=== PATIENT | male | born 1985 | race Caucasian/White ===

== ENCOUNTER 2022-08-24 06:54 | Emergency (ER) | payer OTHER ==
[~2022-08-24] VITALS: Ht 167.6 cm; Wt 77.1 kg
--- OUTSIDE RECORDS SUMMARY | 2022-08-24 06:58 | XMS ---
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 E.Jason. VISIT COUNT (12 MO.) 1 ELAINE Ferreira TOTAL 1 NOTE: Visits indicate total known visits. ED/UCC VISIT TRACKING (12 MO.) 08/24/2022 06:56 [facility] [place] TYPE: Emergency COMPLAINT: - HEADACHE, R SIDE PAIN INPATIENT VISIT TRACKING (12 MO.) No inpatient visits to display in this time frame [email or web address]
[2022-08-24] MEDS ORDERED: LITHIUM CARBON300 MG (07:04)
[2022-08-24] MEDS ORDERED: BIKTARVY 50-201 EACH PO (07:04)
[2022-08-24] MEDS ORDERED: DIVALPROEX SOD500 M1 PO (07:04)
[2022-08-24] MEDS ORDERED: PROMETHAZINE12.5 M1 PO (07:04)
[2022-08-24] MEDS ORDERED: KETOROLAC TROME10 MG PO (07:04)
[2022-08-24] MEDS ORDERED: IMITREX20 MG NAS (09:13)
== END 2022-08-24 10:21 | disposition home or self-care (01) ==
LOC: ED 06:54
DX: G44.009 Cluster headache syndrome, unspecified, not intractable (principal); Z79.899 Other long term (current) drug therapy
CPT/HCPCS: 36415; 80053; 81001; 85025; 96374; 96375; 99284-25; A9270; J1200; J1790; J1885; J7030

== ENCOUNTER 2022-12-02 12:47 | Emergency (ER) | payer OTHER ==
[~2022-12-02] VITALS: Ht 167.6 cm; Wt 83.2 kg
[~2022-12-02 12:47] MED LIST: BIKTARVY 50-201 EACH PO; DIVALPROEX SOD500 M1 PO; IMITREX100 MG PO; IMITREX20 MG NAS; KETOROLAC TROME10 MG PO; LITHIUM CARBON300 MG; PROMETHAZINE12.5 M1 PO
--- OUTSIDE RECORDS SUMMARY | 2022-12-02 12:50 | XMS ---
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 EKorey VISIT COUNT (12 MO.) 3 ELAINE Ferreira TOTAL 3 NOTE: Visits indicate total known visits. ED/UCC VISIT TRACKING (12 MO.) 12/02/2022 12:48 [facility] [place] TYPE: Emergency COMPLAINT: - RT SIDE FACIAL ISSUE 11/16/2022 08:29 [facility] [place] TYPE: Emergency COMPLAINT: - HEADACHE DIAGNOSES: - Headache, unspecified - [facility] therapy 08/24/2022 06:[address] 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
[2022-12-02] MEDS ORDERED: AMOX TR-K CLV1 EAC1 PO (13:00)
[2022-12-02] MEDS ORDERED: HYDROCODON-ACE1 EA10 PO (13:01)
[2022-12-02] MEDS ORDERED: PREDNISONE20 MG PO (13:01)
[2022-12-02 13:13] VITALS: BP 150/88
== END 2022-12-02 13:13 | disposition home or self-care (01) ==
LOC: ED 12:47
DX: J32.9 Chronic sinusitis, unspecified (principal); I88.9 Nonspecific lymphadenitis, unspecified; Z21 Asymptomatic human immunodeficiency virus [HIV] infection status; Z79.899 Other long term (current) drug therapy
CPT/HCPCS: J1100

== ENCOUNTER 2022-12-21 07:10 | Emergency (ER) | payer OTHER ==
[~2022-12-21] VITALS: Ht 167.6 cm; Wt 86.2 kg
[~2022-12-21 07:10] MED LIST changes: +AMOX TR-K CLV1 EAC1 PO; +HYDROCODON-ACE1 EA10 PO; +PREDNISONE20 MG PO
--- OUTSIDE RECORDS SUMMARY | 2022-12-21 07:12 | XMS ---
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 EKorey VISIT COUNT (12 MO.) 4 ELAINE Ferreira TOTAL 4 NOTE: Visits indicate total known visits. 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
[2022-12-21] MEDS ORDERED: CYCLOBENZAPRINE10 MG PO (07:57)
[2022-12-21] MEDS ORDERED: PREDNISONE20 MG PO (07:57)
[2022-12-21 08:08] VITALS: BP 116/73
== END 2022-12-21 08:05 | disposition home or self-care (01) ==
LOC: ED 07:10
DX: S39.012A Strain of muscle, fascia and tendon of lower back, initial encounter (principal); X58.XXXA Exposure to other specified factors, initial encounter; G43.909 Migraine, unspecified, not intractable, without status migrainosus; Z79.899 Other long term (current) drug therapy
CPT/HCPCS: 72100; 96372; 99283-25; J1885; J3360